=== PATIENT | male | born 2000 | race Caucasian/White ===

== ENCOUNTER 2025-05-24 17:57 | Emergency (ER) | payer SELFPAY ==
[2025-05-24 18:09] VITALS: BP 132/86
--- NOTE | 2025-05-24 19:25 | ED.GENMED ---
History of Present Illness
General
Chief Complaint: Skin Problem
Source: patient
Exam Limitations: none
Time Seen by Provider: 05/24/25 19:00
Nursing documentation reviewed up to this point in time: agreed with
History of Present Illness
History of Present Illness:
Patient is a 24 old male who presents to the ER for evaluation. Patient works in [employer] and yesterday started with poison radha all over his arms and legs. He has had this multiple times in the past. He has needed steroids in the past. He
denies any difficulty breathing lip or tongue swelling.
Phy Exam
General Physical Exam
General Presentation: no apparent distress
General age: appears stated age
General Skin: warm and dry
General Habitus: normal
General Mental: alert
General Hydration: appears well hydrated
Cardiovascular Exam
Cardiovascular Exam: regular rate/rhythm, no murmur and normal peripheral pulses
Pulmonary Exam
Pulmonary Exam: lungs clear and no respiratory distress
Neurological Exam
Neurological Exam: alert and oriented x3
Musculoskeletal Exam
Musculoskeletal Exam: full ROM
Skin Exam
Skin Exam: normal color and warm/dry
Psychiatric Exam
Psychiatric Exam: normal mood/affect
Course
Orders/Labs/Results
Orders:
Orders
05/24/25 19:24
Dexamethasone Pf [Decadron] 10 mg PO NOW STA
Vital Signs
Initial and Last Documented VS:
Initial Vital Signs
Temp Pulse Resp BP Pulse Ox
98.3 F 93 18 132/86 98
05/24/25 18:09 05/24/25 18:09 05/24/25 18:09 05/24/25 18:09 05/24/25 18:09
Last Documented Vital Signs
Temp Pulse Resp BP Pulse Ox
98.3 F 93 18 132/86 98
05/24/25 18:09 05/24/25 18:09 05/24/25 18:09 05/24/25 18:09 05/24/25 18:09
MDM/Problems Addressed
Differential Diagnosis Includes:
Not limited to contact dermatitis poison radha
MDM/Problems Addressed:
Rashes consistent with poison radha. Patient has poison radha through arms and legs very itchy has required steroids in the past patient was given a dose of oral Decadron here in the ER and prescription was sent to pharmacy. He however is no acute
distress.
*Pulse Oximetry
SaO2: 98
Oxygen Mode of Delivery: Room air
Patient hypoxic: no
*Critical Care Note
Total Time (30-74mins, 75-104mins- exclusive of procedures): Not Applicable
ED Attending Note
-
Portions of this chart may have been created with voice recognition software.� Occasional wrong word or��sound alike� substitutions may have occurred due to the inherent limitations of voice recognition software.
Discharge Plan
Departure
Patient Disposition: Home (Routine Discharge)
Date of Disposition: 05/24/25
Time of Disposition: 19:28
Patient with high blood pressure during this ER visit?: Yes
Condition: Fair
Covid-19: Not Applicable
Discharge Problem:
Poison radha
Instructions: Poison radha, poison oak, and poison sumac - ED (DC)
Prescriptions:
New
prednisone 10 mg Tablet
See Rx Instructions .ROUTE .COMPLEX Qty: 30 0RF
Rx Instructions:
Take By Mouth:
40 mg daily x3 days, 30 mg daily x3 days,
20 mg daily x3 days, 10 mg daily x3 days.
Referrals:
NONE,* [Family Provider, Internal Medicine]
Activity Restrictions/Additional Instructions:
As discussed you were given 1 dose of oral steroids here in the ER start steroid prescription tomorrow daily as prescribed. Return if any worsening of symptoms.
Interventions
Interventions:
*Risk Screen - Suicide Last Done: 05/24/25 18:10
*General Assessment Last Done: 05/24/25 18:10
*Neglect/Abuse Screening Last Done: 05/24/25 18:10
*ED- Fall Risk Assessment Last Done: 05/24/25 18:54
*ED COVID-19 Vaccine History Last Done: 05/24/25 18:10
Discharge Date and Time
Print Language: MONGOLIAN
[2025-05-24] MEDS: DECADRON 10 MG PO (19:28)
== END 2025-05-24 19:33 | disposition home or self-care (01) ==
LOC: EMR 17:57
PROVIDERS: EMERGENCY PHYSICIAN Emergency Medicine
DX: L23.7 Allergic contact dermatitis due to plants, except food (principal)
CPT/HCPCS: 99283